=== PATIENT | male | born 1980 | race African-American/Black ===

== ENCOUNTER → 2019-06-05 | Outpatient (CLI) | payer OTHER | LOC: MHCPAIN 13:31 | DX: G89.29 Other chronic pain (principal); M47.817 Spondylosis without myelopathy or radiculopathy, lumbosacral region; M54.16 Radiculopathy, lumbar region; M53.3 Sacrococcygeal disorders, not elsewhere classified | CPT/HCPCS: G0463 ==

== ENCOUNTER → 2019-06-21 | Outpatient (CLI) | payer OTHER | LOC: MHCPAIN 09:31 | DX: M47.817 Spondylosis without myelopathy or radiculopathy, lumbosacral region (principal); M54.16 Radiculopathy, lumbar region | CPT/HCPCS: J1100; Q9967 ==

== ENCOUNTER → 2019-07-03 | Outpatient (CLI) | payer OTHER | LOC: MHCPAIN 10:06 | DX: G89.29 Other chronic pain (principal); M47.817 Spondylosis without myelopathy or radiculopathy, lumbosacral region; M54.16 Radiculopathy, lumbar region; M53.3 Sacrococcygeal disorders, not elsewhere classified | CPT/HCPCS: G0463 ==

== ENCOUNTER → 2019-09-17 | Outpatient (CLI) | payer OTHER | LOC: MHCPAIN 09:31 | DX: M47.817 Spondylosis without myelopathy or radiculopathy, lumbosacral region (principal); M54.16 Radiculopathy, lumbar region | CPT/HCPCS: G0463 ==

== ENCOUNTER → 2019-09-27 | Outpatient (CLI) | payer OTHER | LOC: MHCPAIN 09:39 | DX: M54.16 Radiculopathy, lumbar region (principal); M54.5 Low back pain | CPT/HCPCS: J1100; Q9967 ==